=== PATIENT | female | born 1965 | race Caucasian/White ===

== ENCOUNTER → 2021-07-03 15:45 | Outpatient (CLI) | payer OTHER, SELFPAY ==
--- NOTE | ~2021-07-03 | DEXA_ITS ---
Bone Density Report Name: JARED BASHIR Age: 56 Sex: Female Ethnicity: White Date of : 1965 Indication: osteopenia; parental hip fracture; hysterectomy; Referring Provider: Nisa Wang Study: Bone densitometry was performed. Exam Date: July 03, 2021 Accession number: [id number] Bone Density: Region BMD T-score Z-score Classification AP Spine (L1-L4) 0.954 -0.8 0.4 Normal Femoral Neck (Left) 0.630 -2.0 -0.8 Osteopenia Total Hip (Left) 0.723 -1.8 -1.0 Osteopenia Femoral Neck (Right) 0.765 -0.8 0.4 Normal Total Hip (Right) 0.738 -1.7 -0.9 Osteopenia Total Hip Mean 0.731 -1.8 -1.0 Osteopenia World Health Organization criteria for BMD impression classify patients as: Normal (T-score at or above -1.0), Osteopenia (T-score between -1.0 and -2.5), or Osteoporosis (T-score at or below -2.5). 10-year Fracture Risk(1): Major Osteoporotic Fracture 15% Hip Fracture 1.0% Reported Risk Factors: [place] (), Neck BMD=0.630, BMI=21.9, parental fracture (1) FRAX(R) Version 3.08. Fracture probability calculated for an untreated patient. Fracture probability may be lower if the patient has received treatment. Previous Exams: Region Exam Age BMD T-score BMD Change BMD Change Date g/cm2 vs Baseline vs Previous AP Spine(L1-L4) 07/03/2021 56 0.954 -0.8 0.024* -0.003 05/06/2019 53 0.957 -0.8 0.028* 0.028* 07/17/2014 49 0.930 -1.1 Total Hip(Left) 07/03/2021 56 0.723 -1.8 -0.031* -0.022 05/06/2019 53 0.744 -1.6 -0.009 -0.009 07/17/2014 49 0.753 -1.5 Total Hip(Right) 07/03/2021 56 0.738 -1.7 -0.037* -0.007 05/06/2019 53 0.745 -1.6 -0.030* -0.030* 07/17/2014 49 0.775 -1.4 *Denotes significance at 95% confidence level, LSC for AP Spine = 0.022 g/cm2, LSC for Total Hip = 0.027 g/cm2 Clinical Information Provided by Patient: Parent has had a hip fracture Has used the following medications: Vitamin D, Calcium, MULTIVITAMIN Has the following medical conditions: Hysterectomy Patient maximum height was 66.5 Menopause Age: 47 Drinks caffeinated beverages Onset of menses at age 12 Number of children 2 Impression: The patient has low bone mass, based on the Left Femoral Neck T-score. The patient has an estimated ten-year risk of hip fracture of 1% and an estimated ten-year risk of major fracture of 15%
== END ==
PROVIDERS: PCP Student in an Organized Health Care Education/Training Program; Visit Provider Student in an Organized Health Care Education/Training Program
DX: Z78.0 Asymptomatic menopausal state (principal); M85.89 Other specified disorders of bone density and structure, multiple sites
CPT/HCPCS: 77080

== ENCOUNTER 2021-11-23 01:12 | Day surgery (SDC) | payer OTHER, SELFPAY ==
[2021-11-01 15:21] VITALS: BMI 22.0
--- NOTE | 2021-11-22 15:41 | WPDANESEPPF ---
Anes - Initial Pre Proc Eval Procedure: Operation Date: 11/23/21 09:45 Proposed Procedures p Screening Colonoscopy - Taran Benítez MD Date/Time: 11/22/21 15:41 Surgeon: Taran Benítez MD Pre Op Diagnosis: family hx of colon ca Patient Data Age: 56 Gender: F Height: 1.68 m Weight: 62 kg Allergies Allergy/AdvReac Type Severity Reaction Status Date / Time No Known Allergies Allergy Verified 11/23/21 09:05 Home Medications Medication Instructions Recorded Confirmed Type ascorbic acid (vitamin C) 500 mg 1,000 mg PO DAILY 11/24/19 11/23/21 History capsule calcium-vitamin D3-vitamin K 500 2 tablet PO DAILY 11/24/19 11/23/21 History mg-500 unit-40 mcg chewable tablet multivitamin 1 tablet PO DAILY 11/24/19 11/23/21 History psyllium husk 3.4 gram/5.4 gram 1 tbsp PO DAILY 11/24/19 11/23/21 History oral powder (Metamucil) oxygen-air delivery systems 11/25/20 11/25/20 History prasterone (dhea) 6.5 mg vaginal See Rx Instructions .Route 02/21/21 11/23/21 Rx insert (Intrarosa) .COMPLEX #28 inserts rosuvastatin 5 mg tablet 5 mg PO DAILY 08/24/21 11/23/21 History Patient hx anesthesia problems: none Family hx anesthesia problems: none Results Review: All pre-operative results and documents have been reviewed as part of the pre-operative evaluation. [facility] Past Medical History Medical History (Updated 11/22/21 @ 15:41 by Cr Alba DO) Anemia Endometriosis Hyperlipidemia Sleep apnea Vaginal delivery Surgical History Surgical History H/O total hysterectomy History of dilation and curettage History of endometrial ablation Previous section Family History Family History Father Family history of elevated blood lipids Hypertension Family history of malignant neoplasm of kidney Diabetes mellitus Family history of hypercholesterolemia Mother Hypertension Carcinoma of colon Grandparent Cerebrovascular accident Carcinoma of colon Family history of malignant neoplasm of breast Other Family history of malignant neoplasm Social History Social History (Reviewed 03/09/21 @ 14:01 by CHRISTEL Leyva Smoking status: Never smoker Second hand tobacco smoke exposure: No Alcohol intake: current Drinks per week: 3 Substance use: never Substance use type: does not use Living arrangements: with family Spiritual care concerns: No Anes - Eval Final PreProcedure Day of Procedure 11/22/21 15:41 Patient weight: normal Heart: regular rate and rhythm Lungs: clear to auscultation Airway: Mallampati scale class II Neurological: alert and oriented Last oral intake: >/= 8 hours ASA classification: II Emergent: no Anesthetic plan: proceed Anesthesia type and monitoring: general GIVS and standard monitoring Results Review: All pre-operative results and documents have been reviewed as part of the pre-operative evaluation. Informed Consent: The patient's anesthetic plan and its attendant risks and benefits were discussed with the patient/family/POA. Questions were solicited and answers provided to the satisfaction of the patient/family/POA.
[2021-11-23 09:07] VITALS: BP 125/75; PULSE 63; RESP 16; TEMP 36.7; O2SAT 100
[2021-11-23] MEDS: LACTATED RINGERS 1,000 ML 150 ML IV CONT (09:17)
--- NOTE | 2021-11-23 09:50 | PM.IMHP ---
H&P: HPI History of Present Illness Date/Time: 11/23/21 09:50 Chief Complaint: Family history of colon cancer. Narrative: This is a 56-year-old white female patient presents for screening colonoscopy. patient's mother had colon cancer at age 66. Patient has previously had colonoscopies for surveillance purposes most recently 5 years ago. Patient presents today for follow-up colonoscopy. She reports that her current weight appetite and bowel movements are normal. She denies abdominal pain. Patient has had no bleeding. Patient presents today for screening colonoscopy. Review of Systems Review of Systems: Review of systems noncontributory. [facility] Past Medical History Medical History (Updated 11/23/21 @ 09:52 by Taran Benítez MD) Anemia Endometriosis Hyperlipidemia Sleep apnea Vaginal delivery Surgical History Surgical History H/O total hysterectomy History of dilation and curettage History of endometrial ablation Previous section Family History Family History Father Family history of elevated blood lipids Hypertension Family history of malignant neoplasm of kidney Diabetes mellitus Family history of hypercholesterolemia Mother Hypertension Carcinoma of colon Grandparent Cerebrovascular accident Carcinoma of colon Family history of malignant neoplasm of breast Other Family history of malignant neoplasm Social History Social History Smoking status: Never smoker Second hand tobacco smoke exposure: No Alcohol intake: current Drinks per week: 3 Substance use: never Substance use type: does not use Living arrangements: with family Spiritual care concerns: No Meds Home Medications and Allergies Home Medications Medication Instructions Recorded Confirmed Type ascorbic acid (vitamin C) 500 mg 1,000 mg PO DAILY 11/24/19 11/23/21 History capsule calcium-vitamin D3-vitamin K 500 2 tablet PO DAILY 11/24/19 11/23/21 History mg-500 unit-40 mcg chewable tablet multivitamin 1 tablet PO DAILY 11/24/19 11/23/21 History psyllium husk 3.4 gram/5.4 gram 1 tbsp PO DAILY 11/24/19 11/23/21 History oral powder (Metamucil) oxygen-air delivery systems 11/25/20 11/25/20 History prasterone (dhea) 6.5 mg vaginal See Rx Instructions .Route 02/21/21 11/23/21 Rx insert (Intrarosa) .COMPLEX #28 inserts rosuvastatin 5 mg tablet 5 mg PO DAILY 08/24/21 11/23/21 History Allergies Allergy/AdvReac Type Severity Reaction Status Date / Time No Known Allergies Allergy Verified 11/23/21 09:05 Vital Signs Vital Signs - 24 hr 11/23/21 09:07 Temperature 98.1 F Pulse Rate 63 Respiratory Rate 16 Blood Pressure 125/75 Pulse Oximetry 100 Oxygen Delivery Room Air Exam Narrative: Physical exam reveals patient to be alert. Vital signs stable. HEENT exam is unremarkable. Patient is anicteric. Lungs are clear to auscultation and percussion. Heart is without murmur or extra sounds. Abdominal exam bowel sounds are present soft nontender with no organomegaly. Digital external rectal exam is normal. Assessment and Plan Assessment and plan (1) Family history of colon cancer in mother: Code(s): Z80.0 - Family history of malignant neoplasm of digestive organs Status: Acute Assessment and Plan: Patient presents for screening colonoscopy because of family history of colon cancer in her mother. Continue surveillance at 5 year intervals advised.
[2021-11-23 10:23] VITALS: BP 84/49; PULSE 67; RESP 20; O2SAT 100
[2021-11-23 10:33] VITALS: BP 83/55; PULSE 61; RESP 19; O2SAT 100
[2021-11-23 10:43] VITALS: BP 105/65; PULSE 62; RESP 20; O2SAT 100
== END 2021-11-23 10:46 | disposition home or self-care (01) ==
PROVIDERS: PCP Emergency Medicine; Visit Provider Internal Medicine Gastroenterology
PROC: 0DJD8ZZ Inspection of Lower Intestinal Tract, Via Natural or Artificial Opening Endoscopic (ICD-10-PCS; CPT 45378; principal; 2021-11-23 09:45)
DX: Z12.11 Encounter for screening for malignant neoplasm of colon (principal); D12.2 Benign neoplasm of ascending colon; K64.8 Other hemorrhoids; Z80.0 Family history of malignant neoplasm of digestive organs; E78.5 Hyperlipidemia, unspecified; G47.30 Sleep apnea, unspecified
CPT/HCPCS: 45385; 88305; J2704; J7120

== ENCOUNTER 2023-08-01 10:15 | Outpatient (CLI) | payer OTHER, SELFPAY ==
--- NOTE | ~2023-08-01 | DEXA_ITS ---
Bone Density Report Name: JARED BASHIR Age: 58 Sex: Female Ethnicity: White Date of : 1965 Indication: osteopenia; parental hip fracture; hysterectomy; Referring Provider: Neda Carter Study: Bone densitometry was performed. Exam Date: August 01, 2023 Accession number: [id number] Bone Density: Region BMD T-score Z-score Classification AP Spine (L1-L4) 0.914 -1.2 0.1 Osteopenia Femoral Neck (Left) 0.623 -2.0 -0.8 Osteopenia Total Hip (Left) 0.740 -1.7 -0.8 Osteopenia Femoral Neck (Right) 0.691 -1.4 -0.2 Osteopenia Total Hip (Right) 0.724 -1.8 -0.9 Osteopenia Total Hip Mean 0.732 -1.8 -0.9 Osteopenia World Health Organization criteria for BMD impression classify patients as: Normal (T-score at or above -1.0), Osteopenia (T-score between -1.0 and -2.5), or Osteoporosis (T-score at or below -2.5). 10-year Fracture Risk(1): Major Osteoporotic Fracture 17% Hip Fracture 1.3% Reported Risk Factors: [place] (), Neck BMD=0.623, BMI=23.6, parental fracture (1) FRAX(R) Version 3.08. Fracture probability calculated for an untreated patient. Fracture probability may be lower if the patient has received treatment. Previous Exams: Region Exam Age BMD T-score BMD Change BMD Change Date g/cm2 vs Baseline vs Previous AP Spine(L1-L4) 08/01/2023 58 0.914 -1.2 -0.016 -0.040* 07/03/2021 56 0.954 -0.8 0.024* -0.003 05/06/2019 53 0.957 -0.8 0.028* 0.028* 07/17/2014 49 0.930 -1.1 Total Hip(Left) 08/01/2023 58 0.740 -1.7 -0.013 0.017 07/03/2021 56 0.723 -1.8 -0.031* -0.022 05/06/2019 53 0.744 -1.6 -0.009 -0.009 07/17/2014 49 0.753 -1.5 Total Hip(Right) 08/01/2023 58 0.724 -1.8 -0.051* -0.014 07/03/2021 56 0.738 -1.7 -0.037* -0.007 05/06/2019 53 0.745 -1.6 -0.030* -0.030* 07/17/2014 49 0.775 -1.4 *Denotes significance at 95% confidence level, LSC for AP Spine = 0.022 g/cm2, LSC for Total Hip = 0.027 g/cm2 Clinical Information Provided by Patient: Parent has had a hip fracture Has used the following medications: Vitamin D, Calcium, MULTIVITAMIN Has the following medical conditions: Hysterectomy Patient maximum height was 66.5 Menopause Age: 47 Drinks caffeinated beverages Onset of menses at age 12 Number of children 2
== END 2023-08-01 10:16 ==
PROVIDERS: PCP Emergency Medicine; Visit Provider Obstetrics & Gynecology
DX: Z78.0 Asymptomatic menopausal state (principal); M85.89 Other specified disorders of bone density and structure, multiple sites
CPT/HCPCS: 77080

== ENCOUNTER → 2024-04-13 00:17 | Day surgery (SDC) | payer OTHER, SELFPAY ==
[2024-04-08 15:41] VITALS: BMI 23.4
[2024-04-13 13:04] VITALS: BP 122/89; PULSE 81; RESP 20; TEMP 36.4; O2SAT 100; BMI 22.8
[2024-04-13] MEDS: LACTATED RINGERS 1,000 ML 150 ML IV CONT (13:07)
--- NOTE | 2024-04-13 13:29 | P.PNAN_ITS ---
Anes - Initial Pre Proc Eval Procedure: Operation Date: 04/13/24 14:00 Proposed Procedures p Colonoscopy - Kevon Suárez MD Date/Time: 04/13/24 13:29 Surgeon: Kevon Suárez MD Pre Op Diagnosis: IBS with constipation Patient Data Age: 58 Gender: F Height: 1.68 m Weight: 64.3 kg Last Vital Signs Temp 36.4 C L 04/13/24 13:04 Pulse 81 04/13/24 13:04 Resp 20 04/13/24 13:04 BP 122/89 04/13/24 13:04 Pulse Ox 100 04/13/24 13:04 O2 Del Method Room Air 04/13/24 13:04 Allergies Allergy/AdvReac Type Severity Reaction Status Date / Time No Known Allergies Allergy Verified 04/13/24 13:02 Home Medications Medication Instructions Recorded Confirmed Type ascorbic acid (vitamin C) 500 mg 1,000 mg PO DAILY 11/24/19 04/13/24 History capsule calcium 500 mg-vitamin D3 500 2 tablet PO DAILY 11/24/19 04/13/24 History unit-vitamin K 40 mcg chewable tablet multivitamin 1 tablet PO DAILY 11/24/19 04/13/24 History psyllium husk 3.4 gram/5.4 gram 1 tbsp PO DAILY 11/24/19 04/13/24 History oral powder (Metamucil) oxygen-air delivery systems 11/30/21 04/13/24 History rosuvastatin 5 mg tablet 10 mg PO DAILY 11/30/21 04/13/24 History estradiol 0.01% (0.1 mg/gram) 1 g vaginal 3XW #42.5 grams 01/21/24 04/13/24 Rx vaginal cream Patient hx anesthesia problems: none Family hx anesthesia problems: none Results Review: All pre-operative results and documents have been reviewed as part of the pre- operative evaluation. [facility] Past Medical History Medical History (Updated 01/21/24 @ 09:59 by Nati Wilson CMA) Anemia Endometriosis Hyperlipidemia Screening mammogram for breast cancer Sleep apnea Vaginal delivery Surgical History Surgical History H/O total hysterectomy History of colonoscopy with polypectomy 11/23/21 History of dilation and curettage History of endometrial ablation History of removal of skin mole Previous section Family History Family History Father Family history of elevated blood lipids Hypertension Family history of malignant neoplasm of kidney Diabetes mellitus Family history of hypercholesterolemia Mother Hypertension Carcinoma of colon Grandparent Cerebrovascular accident Carcinoma of colon Family history of malignant neoplasm of breast Other Family history of malignant neoplasm Social History Social History Smoking status: Never smoker Second hand tobacco smoke exposure: No Alcohol intake: current Drinks per week: 2 Alcohol use details: soically Substance use: never Substance use type: does not use Lack of Transportation: No Lack of Food: Never True Current Housing: I Have Housing Concerned About Future Housing: No Difficulty Paying Gas/Electric Bills: No Difficulty Paying for Meds: No Currently Unemployed: No Education: Master's Degree or Higher Difficulty w/ Childcare or Family Care: No Living arrangements: with family Occupation/Education: occupation Additional occupation/education comments: Teacher Gender identity (if verbalized by the patient): Female Sexual Orientation (if Verbalized by the Patient): Straight or Heterosexual Spiritual care concerns: No Anes - Eval Final PreProcedure Day of Procedure 04/13/24 13:29 Patient weight: normal Heart: regular rate and rhythm Lungs: clear to auscultation Airway: Mallampati scale class II Neurological: alert and oriented Last oral intake: >/= 8 hours ASA classification: II Emergent: no Anesthetic plan: proceed Anesthesia type and monitoring: general GIVS and standard monitoring Results Review: All pre-operative results and documents have been reviewed as part of the pre- operative evaluation. Informed Consent: The patient's anesthetic plan and its attendant risks and benefits were discussed with the patient/family/POA. Questions were solicited and answers provided to the satisfaction of the patient/family/POA.
--- NOTE | 2024-04-13 13:48 | PM.HPGS ---
History of Present Illness History of Present Illness Consent: Risks, benefits, and alternatives have been discussed and questions answered. Patient agrees to proceed with procedure. Chief complaint: IBS with constipation Narrative: Lelia Cam is a 58 year old female with family history of colon cancer, last colonoscopy 2021 Review of Systems Review of Systems: All systems reviewed & are unremarkable except as noted in HPI and below PMFSH Past Medical History Medical History (Updated 01/21/24 @ 09:59 by Nati Wilson CMA) Anemia Endometriosis Hyperlipidemia Screening mammogram for breast cancer Sleep apnea Vaginal delivery Surgical History Surgical History H/O total hysterectomy History of colonoscopy with polypectomy 11/23/21 History of dilation and curettage History of endometrial ablation History of removal of skin mole Previous section Family History Family History Father Family history of elevated blood lipids Hypertension Family history of malignant neoplasm of kidney Diabetes mellitus Family history of hypercholesterolemia Mother Hypertension Carcinoma of colon Grandparent Cerebrovascular accident Carcinoma of colon Family history of malignant neoplasm of breast Other Family history of malignant neoplasm Social History Social History Smoking status: Never smoker Second hand tobacco smoke exposure: No Alcohol intake: current Drinks per week: 2 Alcohol use details: soically Substance use: never Substance use type: does not use Lack of Transportation: No Lack of Food: Never True Current Housing: I Have Housing Concerned About Future Housing: No Difficulty Paying Gas/Electric Bills: No Difficulty Paying for Meds: No Currently Unemployed: No Education: Master's Degree or Higher Difficulty w/ Childcare or Family Care: No Living arrangements: with family Occupation/Education: occupation Additional occupation/education comments: Teacher Gender identity (if verbalized by the patient): Female Sexual Orientation (if Verbalized by the Patient): Straight or Heterosexual Spiritual care concerns: No Meds Home Medications and Allergies Home Medications Medication Instructions Recorded Confirmed Type ascorbic acid (vitamin C) 500 mg 1,000 mg PO DAILY 11/24/19 04/13/24 History capsule calcium 500 mg-vitamin D3 500 2 tablet PO DAILY 11/24/19 04/13/24 History unit-vitamin K 40 mcg chewable tablet multivitamin 1 tablet PO DAILY 11/24/19 04/13/24 History psyllium husk 3.4 gram/5.4 gram 1 tbsp PO DAILY 11/24/19 04/13/24 History oral powder (Metamucil) oxygen-air delivery systems 11/30/21 04/13/24 History rosuvastatin 5 mg tablet 10 mg PO DAILY 11/30/21 04/13/24 History estradiol 0.01% (0.1 mg/gram) 1 g vaginal 3XW #42.5 grams 01/21/24 04/13/24 Rx vaginal cream Allergies Allergy/AdvReac Type Severity Reaction Status Date / Time No Known Allergies Allergy Verified 04/13/24 13:02 Vital Signs Vital Signs - 24 hr 04/13/24 13:04 Temperature 97.5 F L Pulse Rate 81 Respiratory Rate 20 Blood Pressure 122/89 Pulse Oximetry 100 Oxygen Delivery Room Air Exam Const: General: comfortable and no acute distress HENMT: Face/Nose/Sinus: Normal nares present Eyes: General: appearance normal, both eyes and all related structures Neck: Neck: no JVD Resp: Auscultation: clear to auscultation bilaterally Cardio: Rate: regular rate Rhythm: regular rhythm GI: Inspection: non-distended GI Palp: Yes Soft to palpation Skin: General skin exam: normal color Neuro: General: gait normal Speech: normal speech Extrem: General: normal to inspection Psych: Mental Status: mental status grossly normal Assessment and Plan Assessment and plan (1) Family history of colon cancer in mother: Code(s): Z80.0 - Family history of malignant neoplasm of digestive organs Status: Acute Assessment and Plan: colonoscopy
[2024-04-13 14:11] VITALS: BP 91/55; PULSE 77; RESP 16; O2SAT 100
[2024-04-13 14:21] VITALS: BP 110/50; PULSE 64; RESP 25; O2SAT 100
[2024-04-13 14:31] VITALS: BP 116/73; PULSE 66; RESP 14; O2SAT 100
== END | disposition home or self-care (01) ==
PROVIDERS: PCP Emergency Medicine; Visit Provider Internal Medicine Gastroenterology
PROC: 0DJD8ZZ Inspection of Lower Intestinal Tract, Via Natural or Artificial Opening Endoscopic (ICD-10-PCS; CPT 45378; principal; 2024-04-13 14:00)
DX: D12.2 Benign neoplasm of ascending colon (principal); K63.5 Polyp of colon; K64.8 Other hemorrhoids; K58.1 Irritable bowel syndrome with constipation; D64.9 Anemia, unspecified; N80.9 Endometriosis, unspecified; E78.5 Hyperlipidemia, unspecified; G47.30 Sleep apnea, unspecified; Z99.81 Dependence on supplemental oxygen; Z98.890 Other specified postprocedural states; Z98.891 History of uterine scar from previous surgery; Z80.0 Family history of malignant neoplasm of digestive organs; Z80.51 Family history of malignant neoplasm of kidney; Z80.3 Family history of malignant neoplasm of breast; Z82.49 Family history of ischemic heart disease and other diseases of the circulatory system
CPT/HCPCS: 45385; 88305; J2704; J7120